=== PATIENT | female | born 1985 | race American Indian/Alaskan Native ===

== ENCOUNTER 2020-11-25 07:28 | Emergency (ER) | payer MEDICAID ==
[2020-11-25 08:02] LABS: Bacteria,Urine 1+ /HPF (Negative); Bilirubin,Urine NEG (Negative); Blood,Urine NEG (Negative); Color,Urine Yellow (Yellow); Mucus,Urine 1+ /HPF
[2020-11-25 08:10] LABS: Amphetamine Screen,Urine Negative; Benzodiazepines Screen,Urine Negative; Methadone Screen,Urine Negative; Opiate Screen,Urine Negative
[2020-11-25 08:12] LABS: Basophils % (Auto) 0.7 % (0.0-1.8); Eosinophils # (Auto) 0.1 K/mm3 (0.0-0.4); Eosinophils % (Auto) 0.8 % (0.0-4.3); Hematocrit 41.8 % (30.3-42.9); Hemoglobin 14.7 gm/dl (10.1-14.3); Lymphocytes # (Auto) 1.2 K/mm3 (1.2-5.4); Lymphocytes % (Auto) 17.7 % (13.4-35.0); Mean Corpuscular HGB Conc 35 % (30-34); Mean Corpuscular Volume 90 fl (79-97); Monocytes # (Auto) 0.4 K/mm3 (0.0-0.8); Monocytes % (Auto) 6.3 % (0.0-7.3); Platelet Count 284 K/mm3 (140-440); Red Blood Count 4.66 M/mm3 (3.65-5.03)
[2020-11-25 08:25] LABS: BUN/Creatinine Ratio 6; Blood Urea Nitrogen 7 mg/dL (7-17); Calcium 9.3 mg/dL (8.4-10.2); Hemolysis Index 2
[2020-11-25 08:41] LABS: Cannabinoid Screen,Urine PRESUMPTIVE POSITIVE; Cocaine Screen,Urine PRESUMPTIVE POSITIVE
--- NOTE | 2020-11-25 10:47 | Consultation ---
History of Present Illness - Reason for Consult Consult date: 11/25/20 Reason for consult: suicidal thoughts - History of Present Psychiatric Illness Per ED note: "Patient is 35-year-old transgender presented to the emergency room with depression and suicidal ideation. Patient stated that he has history of bipolar disorder. Patient stated that he had multiple suicidal attempts before. Patient stated that last year he woke up at [facility] after he hang himself. Patient stated that he does not have a plan at this moment but he feels life is not worth it anymore. Patient stated that he had issues with his and he is going through divorce. Patient admitted using cocaine in the last few days. Patient denied any homicidal ideation. No visual or auditory hallucination." Sunita Eason is a 35y/o transgender male who presents to the ER with suicidal ideation, hopelessness, helplessness and drug use. The patient says "I went to [place] but they told me I needed to come here." He says "I want to just jump off of a bridge or run into traffic. I don't know what to do." He says he has a history of cocaine, crack, and THC use. He says he "has a gun but my girlfriend has it locked up." The patient denies being on any medication and says he was on vistaril in 2019. He says he has a history of depression. PAST PSYCHIATRIC HISTORY: Diagnoses: Depression Suicide attempts or Self-harm behavior: "a lot of times" Prior psychiatric hospitalizations: yes Substance Abuse history: Crack, cocaine, [facility] Previous psychiatric medications tried: Yes Outpatient treatment: No response PAST MEDICAL HISTORY: No significant past medical history Family Psychiatric History: None reported or documented SOCIAL HISTORY Marital Status: Single Living Arrangements: half-way Employment Status: Unemployed on SSI Access to guns/weapons: None reported Education: High school History of Abuse: None reported Legal History: None reported REVIEW OF SYSTEMS Constitutional: Negative for weight loss ENT: Negative for stridor Respiratory: Negative for cough or hemoptysis All other systems reviewed and are negative MENTAL STATUS EXAMINATION General Appearance and Behavior: Age appropriate, good hygiene, not wearing appropriate clothes, good eye contact, cooperative with questioning. Cooperation: Participating but withdrawn and guarded Psychomotor Behavior: Psychomotor agitation Mood: Depressed, hopeless, helpless Affect and affective range: Congruent with stated mood Thought Process: goal directed Thought Content: hopelessness, suicidal thoughts Speech: pressured, loud volume at times Intellectual Functioning: Average Suicidal Ideation: Yes Homicidal Ideation: Denies HI Impulse Control: Impaired Insight and Judgment: Limited insight and judgment Memory: Normal, Attention: Divided attention impaired Orientation: Alert, oriented, Assessment and Plan Major Depressive Disorder Cocaine Dependence Current Visit: Yes Status: Acute Treatment Plan 1013 Risperidone 0.25mg po BID Trazodone 50mg po qhs Medical: per primary Disposition: Recommend acute inpatient treatment Will follow. Thank you for this consult Case staffed with Dr. Rodriguez Medications and Allergies Allergies Allergy/AdvReac Type Severity Reaction Status Date / Time No Known Allergies Allergy Verified 07/29/18 22:14 Home Medications Medication Instructions Recorded Confirmed Last Taken Type Testosterone 0.5 mil units IM 2XW 07/29/18 07/29/18 2 Weeks Ago History ~07/15/18 Mental Status Exam - Vital signs Last Vital Signs Temp 98.9 F 11/25/20 07:34 Pulse 74 11/25/20 07:34 Resp 18 11/25/20 07:34 BP 148/91 11/25/20 07:34 Pulse Ox 99 11/25/20 07:34 Results Result Diagrams: 11/25/20 07:49 11/25/20 07:49 Abnormal lab results 11/25/20 11/25/20 11/25/20 Range/Units 07:49 07:49 07:49 Hgb (10.1-14.3) gm/dl MCHC (30-34) % Seg Neutrophils % (40.0-70.0) % Potassium 3.5 L (3.6-5.0) mmol/L Chloride 107.3 H (98-107) mmol/L Salicylates < 0.3 L (2.8-20.0) mg/dL Acetaminophen 5.0 L (10.0-30.0) ug/mL 11/25/20 Range/Units 07:49 Hgb 14.7 H (10.1-14.3) gm/dl MCHC 35 H (30-34) % Seg Neutrophils % 74.5 H (40.0-70.0) % Potassium (3.6-5.0) mmol/L Chloride (98-107) mmol/L Salicylates (2.8-20.0) mg/dL Acetaminophen (10.0-30.0) ug/mL All other labs normal.
--- NOTE | 2020-11-25 10:57 | Emergency Department Report ---
ED Psych HPI - General Chief Complaint: Psych Stated Complaint: CYNTHIA EVNOEMÍ Time Seen by Provider: 11/25/20 10:20 Source: patient Mode of arrival: Ambulatory - History of Present Illness Initial Comments: Patient is 35-year-old transgender presented to the emergency room with depress ion and suicidal ideation. Patient stated that he has history of bipolar disorder. Patient stated that he had multiple suicidal attempts before. Patient stated that last year he woke up at [facility] after he hang himself. Patient stated that he does not have a plan at this moment but he fee ls life is not worth it anymore. Patient stated that he had issues with his and he is going through divorce. Patient admitted using cocaine in the last few days. Patient denied any homicidal ideation. No visual or auditory hallucination. MD Complaint: suicidal ideation, feels depressed -: days(s) Associated Psychiatric Symptoms: depression, suicidal ideation Quality: constant Context: recent drug abuse Associated Symptoms: denies other symptoms Treatments Prior to Arrival: none If Self Harm: admits thoughts of - Related Data Home Medications Medication Instructions Recorded Confirmed Last Taken Testosterone Cypionate 50 mg IM QWEEK 11/25/20 11/25/20 2 Weeks Ago [Depo-Testosterone] ~11/11/20 Allergies Allergy/AdvReac Type Severity Reaction Status Date / Time No Known Allergies Allergy Verified 07/29/18 22:14 ED Review of Systems ROS: Stated complaint: CYNTHIA EVNOEMÍ Other details as noted in HPI Comment: All other systems reviewed and negative Constitutional: denies: chills, fever Respiratory: denies: cough, shortness of breath, SOB with exertion, SOB at rest, wheezing Cardiovascular: denies: chest pain, palpitations, dyspnea on exertion Gastrointestinal: denies: abdominal pain, nausea, vomiting, diarrhea, constipation, hematemesis, melena, hematochezia Musculoskeletal: denies: back pain Neurological: denies: headache, weakness, numbness, paresthesias, confusion ED Past Medical Hx - Past Medical History Hx Psychiatric Treatment: Yes (ptsd/depression/anxiety/adhd/mood swings) Additional medical history: pt is going to gender reassignment surgery. - Surgical History Additional Surgical History: top surgery - Social History Smoking Status: Current Every Day Smoker Substance Use Type: Cocaine, Marijuana - Medications Home Medications: Home Medications Medication Instructions Recorded Confirmed Last Taken Type Testosterone Cypionate 50 mg IM QWEEK 11/25/20 11/25/20 2 Weeks Ago History [Depo-Testosterone] ~11/11/20 ED Physical Exam - General Limitations: No Limitations General appearance: alert, in no apparent distress - Head Head exam: Present: atraumatic, normocephalic, normal inspection - Eye Eye exam: Present: normal appearance, PERRL - ENT ENT exam: Present: normal exam, normal orophraynx, mucous membranes moist - Neck Neck exam: Present: normal inspection, full ROM. Absent: tenderness, meningismus, lymphadenopathy, thyromegaly - Respiratory Respiratory exam: Present: normal lung sounds bilaterally - Cardiovascular Cardiovascular Exam: Present: regular rate, normal rhythm, normal heart sounds - GI/Abdominal GI/Abdominal exam: Present: soft, normal bowel sounds. Absent: distended, tenderness, guarding, rebound, rigid, organomegaly, mass, bruit, pulsatile mass, hernia - Extremities Exam Extremities exam: Present: normal inspection, full ROM, normal capillary refill. Absent: pedal edema, calf tenderness - Back Exam Back exam: Present: normal inspection, full ROM. Absent: CVA tenderness (R), CVA tenderness (L) - Neurological Exam Neurological exam: Present: alert, oriented X3, CN II-XII intact, normal gait, reflexes normal. Absent: motor sensory deficit - Psychiatric Psychiatric exam: Present: normal mood, depressed, suicidal ideation. Absent: homicidal ideation - Skin Skin exam: Present: warm, intact, normal color ED Course Vital Signs 11/25/20 11/25/20 11/25/20 07:34 13:45 14:18 Temperature 98.9 F Pulse Rate 74 69 Respiratory 18 18 18 Rate Blood Pressure 148/91 Blood Pressure 111/69 [Left] O2 Sat by Pulse 99 98 Oximetry 11/25/20 20:00 Temperature 97.9 F Pulse Rate 71 Respiratory 18 Rate Blood Pressure Blood Pressure 117/79 [Left] O2 Sat by Pulse 99 Oximetry ED Medical Decision Making - Lab Data Result diagrams: 11/25/20 07:49 11/25/20 07:49 Critical care attestation.: If time is entered above; I have spent that time in minutes in the direct care of this critically ill patient, excluding procedure time. ED Disposition Clinical Impression: Suicidal ideation Disposition: [id number]/TX-[id number] PSY HOSP/PSY UNIT Is pt being admited?: No Condition: Stable Referrals: PRIMARY CARE, [Primary Care Provider] - 3-5 Days
[2020-11-25] MEDS: risperiDONE 0.25 MG TAB PO SCH ×2 (12:14→22:10)
[2020-11-25 20:59] VITALS: BP 117/79
[2020-11-25] MEDS ORDERED: traZODone 50 MG TAB PO SCH (22:00)
== END 2020-11-25 22:50 ==
LOC: ED 07:28
DX: R45.851 Suicidal ideations (principal); F17.200 Nicotine dependence, unspecified, uncomplicated; F12.10 Cannabis abuse, uncomplicated; F14.10 Cocaine abuse, uncomplicated; Z79.899 Other long term (current) drug therapy
CPT/HCPCS: 36415; 80048; 80307; 80320; 81001; 85025; G0480

== ENCOUNTER 2020-12-22 11:38 | Emergency (ER) | payer MEDICAID ==
[2020-12-22 12:43] VITALS: BP 131/85
--- NOTE | 2020-12-22 13:41 | Emergency Department Report ---
Blank Doc - Documentation Documentation: 35-year-old female that presents with SI and depression. 1- This initial assessment/diagnostic orders/clinical plan/ treatment(s) is/are subject to change based on pt's health status, clinical progression and re- assessment by fellow clinical providers in the ED. Further treatment and workup at subsequent clinical provers discretion. Patient/guardians urged not to elope from ED as their condition may be serious if not clinically assessed and managed. 2-patient placed on 1013 3-psych protocol orders
[2020-12-22 14:46] LABS: Basophils % (Auto) 0.5 % (0.0-1.8); Eosinophils # (Auto) 0.1 K/mm3 (0.0-0.4); Hematocrit 38.8 % (30.3-42.9); Hemoglobin 13.5 gm/dl (10.1-14.3); Lymphocytes % (Auto) 23.9 % (13.4-35.0); Mean Corpuscular HGB Conc 35 % (30-34); Mean Corpuscular Volume 91 fl (79-97); Monocytes # (Auto) 0.5 K/mm3 (0.0-0.8); Platelet Count 278 K/mm3 (140-440); Red Blood Count 4.26 M/mm3 (3.65-5.03); Red Cell Distribution Width 14.1 % (13.2-15.2)
[2020-12-22 14:55] LABS: BUN/Creatinine Ratio 6; Blood Urea Nitrogen 7 mg/dL (7-17); Calcium 8.8 mg/dL (8.4-10.2); Hemolysis Index 10
[2020-12-22 15:40] LABS: Bacteria,Urine 1+ /HPF (Negative); Bilirubin,Urine NEG (Negative); Blood,Urine NEG (Negative); Color,Urine Yellow (Yellow); Mucus,Urine FEW /HPF; Protein,Urine <15 mg/dL mg/dL (Negative); RBC,Urine < 1.0 /HPF (0.0-6.0); Urobilinogen,Urine < 2.0 mg/dL (<2.0)
== END 2020-12-22 17:33 | disposition left against medical advice (07) ==
LOC: ED 11:38
DX: F32.9 Major depressive disorder, single episode, unspecified (principal); R45.851 Suicidal ideations; Z53.21 Procedure and treatment not carried out due to patient leaving prior to being seen by health care provider
CPT/HCPCS: 36415; 80048; 80320; 81001; 85025; G0480

== ENCOUNTER 2021-07-01 09:47 | Emergency (ER) | payer MEDICAID ==
--- NOTE | 2021-07-01 11:13 | Emergency Department Report ---
ED Psych HPI - General Stated Complaint: MENTAL HEALTH Time Seen by Provider: 07/01/21 11:06 - History of Present Illness Initial Comments: Patient presents with suicidal thoughts and homicidal thoughts. He states that he has been feeling suicidal for the last couple of days. He does not know why he is having these thoughts. He is not really been able to relate any inciting or triggering event. He is scared that he is going to act on this. He has been suicidal before. He has had thoughts before. He states that normally when he is at this degree, he knows that intervention is necessary. Patient has not done anything as of yet to harm himself. He came here for evaluation. He is not hearing voices that are telling him to harm himself. He is not homicidal at this time, but states that he could be homicidal and feels as though he could h urt someone. He did not want to act rationally and came here. He has pronoun of choice is "he." - Related Data Home Medications Medication Instructions Recorded Confirmed Last Taken Testosterone Cypionate 50 mg IM QWEEK 11/25/20 11/25/20 2 Weeks Ago [Depo-Testosterone] ~11/11/20 Allergies Allergy/AdvReac Type Severity Reaction Status Date / Time No Known Allergies Allergy Verified 12/22/20 12:36 ED Review of Systems ROS: Stated complaint: MENTAL HEALTH Other details as noted in HPI Comment: All other systems reviewed and negative Constitutional: denies: fever Eyes: denies: vision change ENT: denies: throat pain Respiratory: denies: cough Cardiovascular: denies: chest pain Endocrine: denies: unexplained weight loss Gastrointestinal: denies: abdominal pain Genitourinary: denies: dysuria Musculoskeletal: denies: back pain Skin: denies: rash Neurological: denies: headache Psychiatric: as per HPI Hematological/Lymphatic: denies: easy bruising ED Past Medical Hx - Past Medical History Hx Psychiatric Treatment: Yes (ptsd/depression/anxiety/adhd/mood swings) Additional medical history: pt is going to gender reassignment surgery. - Surgical History Additional Surgical History: top surgery - Social History Smoking Status: Never Smoker Substance Use Type: Cocaine - Medications Home Medications: Home Medications Medication Instructions Recorded Confirmed Last Taken Type Testosterone Cypionate 50 mg IM QWEEK 02/02/21 02/02/21 2 Weeks Ago History [Depo-Testosterone] ~11/11/20 ED Physical Exam - General Limitations: No Limitations General appearance: alert, in no apparent distress, anxious - Head Head exam: Present: atraumatic, normocephalic - Eye Eye exam: Present: normal appearance, PERRL, EOMI. Absent: scleral icterus - ENT ENT exam: Present: normal exam, normal orophraynx - Neck Neck exam: Present: normal inspection, full ROM. Absent: meningismus - Respiratory Respiratory exam: Present: normal lung sounds bilaterally. Absent: respiratory distress - Cardiovascular Cardiovascular Exam: Present: regular rate, normal rhythm - GI/Abdominal GI/Abdominal exam: Present: soft. Absent: tenderness - Extremities Exam Extremities exam: Present: normal capillary refill - Back Exam Back exam: Absent: CVA tenderness (R), CVA tenderness (L) - Neurological Exam Neurological exam: Present: alert, oriented X3, normal gait - Psychiatric Psychiatric exam: Present: anxious, suicidal ideation - Skin Skin exam: Present: warm, dry ED Course Vital Signs 07/01/21 07/01/21 11:08 11:38 Temperature 98.6 F 98.3 F Pulse Rate 84 63 Respiratory 17 20 Rate Blood Pressure 133/87 122/75 [Left] O2 Sat by Pulse 100 99 Oximetry - Reevaluation(s) Reevaluation #1: 07/01/21 11:12 Patient was seen as above. He is actively suicidal without a plan. 1013 was placed. Psychiatric evaluation has been requested. Reevaluation #2: 07/01/21 12:17 Labs are still pending. Reevaluation #3: 07/01/21 14:03 Labs are still pending. Reevaluation #4: 07/01/21 17:22 Labs have not been reviewed. Psychiatric evaluation is complete. Placement is pending. Patient is medically cleared. 07/01/21 17:23 ED Medical Decision Making - Lab Data Result diagrams: 07/01/21 Unknown 07/01/21 11:12 - Medical Decision Making Patient presented secondary to depression and thoughts of suicide. There was some concern for self harm. He also thought that he could become upset enough to harm other people. He had been medically cleared. Patient was seen by psychiatric services. It was felt that admission would be appropriate. They are currently awaiting disposition and placement. Patient is not delusional. There is no evidence of acute psychosis. There is no metabolic or infectious derangement. Critical Care Time: No Critical care attestation.: If time is entered above; I have spent that time in minutes in the direct care of this critically ill patient, excluding procedure time. ED Disposition Clinical Impression: Suicidal ideation Disposition: 30 STILL A PATIENT Is pt being admited?: No Does the pt Need Aspirin: No Condition: Stable
[2021-07-01 12:53] LABS: BUN/Creatinine Ratio 8; Blood Urea Nitrogen 7 mg/dL (7-17); Calcium 9.3 mg/dL (8.4-10.2); Hemolysis Index 4
[2021-07-01 14:39] LABS: Bacteria,Urine 1+ /HPF (Negative); Bilirubin,Urine NEG (Negative); Blood,Urine MOD (Negative); Color,Urine Yellow (Yellow); Mucus,Urine 3+ /HPF
[2021-07-01 14:52] LABS: Amphetamine Screen,Urine PRESUMPTIVE NEGATIVE; Benzodiazepines Screen,Urine PRESUMPTIVE NEGATIVE; Cannabinoid Screen,Urine PRESUMPTIVE POSITIVE; Cocaine Screen,Urine PRESUMPTIVE POSITIVE; Methadone Screen,Urine PRESUMPTIVE NEGATIVE; Opiate Screen,Urine PRESUMPTIVE NEGATIVE
[2021-07-01 16:43] LABS: Hematocrit 38.1 % (30.3-42.9); Mean Corpuscular HGB Conc 34 % (30-34); Mean Corpuscular Volume 94 fl (79-97); Platelet Count 284 K/mm3 (140-440); Red Blood Count 4.08 M/mm3 (3.65-5.03); Red Cell Distribution Width 13.9 % (13.2-15.2)
[2021-07-01] MEDS ORDERED: traMADol 50 MG TAB PO ONE (19:46)
--- NOTE | 2021-07-02 09:31 | Consultation ---
History of Present Illness - Reason for Consult Consult date: 07/02/21 Reason for consult: SI/HI - History of Present Psychiatric Illness Per ED Note: Patient presents with suicidal thoughts and homicidal thoughts. He states that he has been feeling suicidal for the last couple of days. He does not know why he is having these thoughts. He is not really been able to relate any inciting or triggering event. He is scared that he is going to act on this. He has been suicidal before. He has had thoughts before. He states that normally when he is at this degree, he knows that intervention is necessary. Patient has not done anything as of yet to harm himself. He came here for evaluation. He is not hearing voices that are telling him to harm himself. He is not homicidal at this time, but states that he could be homicidal and feels as though he could hurt someone. He did not want to act rationally and came here. Sunita Eason is a 36 year old female with history of Schizophrenia, Bip olar, Depression, ADHD, PTSD, Anxiety who presents to the ED with suicidal and homicidal thoughts. In my interview with the patient, she reports being depressed stating, " I keep seeing vision of myself running into traffic or jumping into a bridge." She reports stressors such as " Life, not being able to get over a lot of stuff, how people treat me and I don't know my purpose."The patient became tearful. He admits being suicidal but denies having homicidal ideation and denies hallucinations. PAST PSYCHIATRIC HISTORY: Diagnoses:Schizophrenia, Bipolar, Depression, ADHD, PTSD, Anxiety Suicide attempts or Self-harm behavior: Multiple Prior psychiatric hospitalizations:Yes Substance Abuse history: Cocaine, Marijuana Previous psychiatric medications tried: Zoloft, Risperidone, Trazodone, Cogentin, Depakote, Seroquel, Abilify Outpatient treatment:Denies PAST MEDICAL HISTORY: None reported or document Family Psychiatric History: None reported or documented SOCIAL HISTORY Marital Status: Living Arrangements: Lives with Employment Status:SSI Access to guns/weapons: Denies Education:some Ged History of Abuse:Yes Legal History:unknown REVIEW OF SYSTEMS Constitutional: Negative for weight loss ENT: Negative for stridor Respiratory: Negative for cough or hemoptysis All other systems reviewed and are negative MENTAL STATUS EXAMINATION General Appearance and Behavior: Age appropriate, good hygiene, wearing appropriate clothes. Cooperation: Cooperative Psychomotor Behavior: Psychomotor normal Mood:Depressed Affect and affective range: Congruent with stated mood Thought Process: Obsessions Thought Content: Suicidal Speech: Normal volume, Regular rate and rhythm, Suicidal Ideation: Yes Homicidal Ideation:Denies Hallucinations: Denies Delusions:Denies Impulse Control: Unimpaired Insight and Judgment: Limited, fair judgment Memory: Normal Attention:Distractible Orientation: alert and oriented Assessment and Plan (1) Bipolar disorder, current episode depressed, severe- F31.4 Current Visit: Yes Status: Acute Start Abilify 10mg po daily Start Vistaril 50mg po every 6 hours PRN Start Trazodone 50mg po QHS The patient to comply with previously prescribed medications Risks, benefits and alternatives of medications discussed with the patient, questions answered and consent obtained from patient. PSYCHOTHERAPY: Supportive psychotherapy provided MEDICAL: Per primary team DELIRIUM PRECAUTIONS: Please re-orient patient frequently, keep lights on during the day, and minimize benzodiazepines and opiates as these medications could worsen patient's confusion. [employer] SUPERINTENDENT: Defer to primary DISPOSITION: Recommend acute inpatient psychiatric hospitalization at this time. FOLLOW-UP: Will follow. Case staffed with Dr. Rodriguez Please contact with any questions and/or concerns. Thank you for the consult. Medications and Allergies Allergies Allergy/AdvReac Type Severity Reaction Status Date / Time No Known Allergies Allergy Verified 12/22/20 12:36 Home Medications Medication Instructions Recorded Confirmed Last Taken Type Testosterone Cypionate 50 mg IM QWEEK 11/25/20 11/25/20 2 Weeks Ago History [Depo-Testosterone] ~11/11/20 Mental Status Exam - Vital signs Last Vital Signs Temp 99.0 F 07/02/21 08:08 Pulse 63 07/02/21 08:08 Resp 18 07/02/21 08:28 BP 125/77 07/02/21 08:08 Pulse Ox 98 07/02/21 08:28 Results Result Diagrams: 07/01/21 Unknown 07/01/21 11:12 Abnormal lab results 07/01/21 Range/Units 11:12 Chloride 107.4 H (98-107) mmol/L All other labs normal.
--- NOTE | 2021-07-02 10:32 | Event Note ---
Date: 07/02/21 Patient is 36 years old female with history of schizophrenia admitted to the ER yesterday for evaluation of suicidal ideation. Patient stated that she went to run into traffic. Vital signs stable Labs reviewed and is unremarkable. Waiting for inpatient psychiatric admission.
[2021-07-02] MEDS ORDERED: hydrOXYzine PAMOATE 25 MG CAP PO ONE (11:00)
[2021-07-02] MEDS ORDERED: ARIPiprazole 10 MG TAB PO SCH (11:00)
[2021-07-02] MEDS ORDERED: traZODone 50 MG TAB PO SCH (22:00)
[2021-07-03 09:04] VITALS: BP 115/72
== END 2021-07-03 09:03 | disposition still patient (30) ==
LOC: EEVIPCON 09:47 → ED 09:47
DX: R45.851 Suicidal ideations (principal); Z20.822 Contact with and (suspected) exposure to COVID-19
CPT/HCPCS: 36415; 80048; 80307; 81001; 84443; 85027; 99284; Q0177; U0003; 80320; G0480

== ENCOUNTER 2021-07-31 12:55 | Emergency (ER) | payer MEDICAID ==
[2021-07-31 15:24] LABS: Alanine Aminotransferase 10 units/L (7-56); Albumin 3.6 g/dL (3.9-5); BUN/Creatinine Ratio 9; Blood Urea Nitrogen 8 mg/dL (7-17); Calcium 8.3 mg/dL (8.4-10.2); Hemolysis Index 5
[2021-07-31 15:34] LABS: Basophils % (Auto) 0.5 % (0.0-1.8); Eosinophils # (Auto) 0.2 K/mm3 (0.0-0.4); Eosinophils % (Auto) 2.7 % (0.0-4.3); Hematocrit 34.7 % (30.3-42.9); Lymphocytes # (Auto) 1.5 K/mm3 (1.2-5.4); Lymphocytes % (Auto) 20.8 % (13.4-35.0); Mean Corpuscular HGB Conc 35 % (30-34); Mean Corpuscular Volume 92 fl (79-97); Monocytes # (Auto) 0.7 K/mm3 (0.0-0.8); Monocytes % (Auto) 10.1 % (0.0-7.3); Platelet Count 287 K/mm3 (140-440); Red Blood Count 3.78 M/mm3 (3.65-5.03); Red Cell Distribution Width 13.9 % (13.2-15.2)
--- NOTE | 2021-07-31 17:31 | Emergency Department Report ---
HPI - General Chief Complaint: Psych Time Seen by Provider: 07/31/21 14:32 - HPI HPI: 36-year-old biologically female who identifies as a male with history of PTSD, bipolar disorder, and schizophrenia presents with suicidal ideation. The patient states that he is having trouble with his and is having thoughts of killing himself. He has a plan to jump into traffic. When asked about homicidal ideation he says "I had those thoughts". When asked who he has had thoughts of hurting he states, "those that try to hurt me." He denies auditory or visual hallucinations. He denies any physical symptoms or complaints whatsoever including headache, vision change, fever, neck pain, chest pain, back pain, shortness of breath, cough, abdominal pain, nausea/vomiting, dysuria, focal weakness, sensory changes, or any other complaints. He says his last menstrual period was at the end of June. ED Past Medical Hx - Past Medical History Previous Medical History?: Yes Hx Psychiatric Treatment: Yes (ptsd/depression/anxiety/adhd/mood swings) Additional medical history: pt is going to gender reassignment surgery. - Surgical History Past Surgical History?: Yes Additional Surgical History: top surgery - Social History Smoking Status: Unknown if ever smoked - Medications Home Medications: Home Medications Medication Instructions Recorded Confirmed Last Taken Type Testosterone Cypionate 50 mg IM QWEEK 11/25/20 08/01/21 1 Week Ago History [Depo-Testosterone] ~07/25/21 50 mg ARIPiprazole [Abilify] 10 mg PO DAILY #30 tab 08/02/21 Unknown Rx Sertraline [Zoloft] 25 mg PO QDAY #30 tab 08/02/21 Unknown Rx hydrOXYzine PAMOATE [Vistaril] 25 mg PO BID PRN #60 capsule 08/02/21 Unknown Rx traZODone [Desyrel] 50 mg PO QHS #30 tab 08/02/21 Unknown Rx ED Review of Systems ROS: Stated complaint: SUICIDAL/DEPRESSION Other details as noted in HPI Comment: All other systems reviewed and negative Constitutional: denies: chills, fever Eyes: denies: eye pain, vision change ENT: denies: throat pain, congestion Respiratory: denies: cough, shortness of breath Cardiovascular: denies: chest pain, palpitations Gastrointestinal: denies: abdominal pain, nausea, vomiting Genitourinary: denies: dysuria, frequency Musculoskeletal: denies: back pain, joint swelling Skin: denies: rash, lesions Neurological: denies: headache, weakness, numbness Psychiatric: depression, homicidal thoughts, suicidal thoughts. denies: auditory hallucinations, visual hallucinations Physical Exam - Physical Exam Vital Signs: Vital Signs 07/31/21 07/31/21 13:11 16:30 Temperature 98.5 F 98.6 F Pulse Rate 83 83 Respiratory 16 16 Rate Blood Pressure 123/68 123/67 [Left] O2 Sat by Pulse 97 100 Oximetry Physical Exam: GENERAL: Well developed and well nourished. No acute distress HEAD: Normocephalic. No obvious signs of trauma. ENT: Moist mucous membranes. EYES: Extraocular movements are intact. Pupils are equal round and reactive to light bilaterally NECK: Supple. Full ROM is intact. Trachea is midline. LUNGS: Nonlabored breathing. Equal chest rise bilaterally. Clear to auscultation bilaterally. CARDIOVASCULAR: Regular rate and rhythm. No murmurs or rubs. VASCULAR: Cap refill < 2 seconds ABDOMEN: Abdomen is soft and nondistended. There is no significant tenderness, guarding or rebound. SKIN: Skin is warm and dry NEURO: Patient is awake, alert, and oriented. solar process engineer II-XII grossly intact. No focal deficits. Normal motor and sensory exam throughout. Normal speech. MUSCULOSKELETAL: No obvious deformities. No significant tenderness. Normal ROM throughout. ED Course Vital Signs 07/31/21 07/31/21 13:11 16:30 Temperature 98.5 F 98.6 F Pulse Rate 83 83 Respiratory 16 16 Rate Blood Pressure 123/68 123/67 [Left] O2 Sat by Pulse 97 100 Oximetry ED Medical Decision Making - Lab Data Result diagrams: 07/31/21 17:16 07/31/21 14:45 Lab Results 07/31/21 07/31/21 07/31/21 Range/Units 14:45 14:45 14:45 WBC 7.1 (4.5-11.0) K/mm3 RBC 3.78 (3.65-5.03) M/mm3 Hgb 12.0 (10.1-14.3) gm/dl Hct 34.7 (30.3-42.9) % MCV 92 (79-97) fl MCH 32 (28-32) pg MCHC 35 H (30-34) % RDW 13.9 (13.2-15.2) % Plt Count 287 (140-440) K/mm3 Lymph % (Auto) 20.8 (13.4-35.0) % [place] % (Auto) 10.1 H (0.0-7.3) % Eos % (Auto) 2.7 (0.0-4.3) % Baso % (Auto) 0.5 (0.0-1.8) % Lymph # (Auto) 1.5 (1.2-5.4) K/mm3 [place] # (Auto) 0.7 (0.0-0.8) K/mm3 Eos # (Auto) 0.2 (0.0-0.4) K/mm3 Baso # (Auto) 0.0 (0.0-0.1) K/mm3 Seg Neutrophils % 65.9 (40.0-70.0) % Seg Neutrophils # 4.7 (1.8-7.7) K/mm3 Sodium 139 (137-145) mmol/L Potassium 3.7 (3.6-5.0) mmol/L Chloride 105.9 (98-107) mmol/L Carbon Dioxide 23 (22-30) mmol/L Anion Gap 14 mmol/L BUN 8 (7-17) mg/dL Creatinine 0.9 (0.6-1.2) mg/dL Estimated GFR > 60 ml/min BUN/Creatinine Ratio 9 % Glucose 91 (65-100) mg/dL Calcium 8.3 L (8.4-10.2) mg/dL Total Bilirubin 0.80 (0.1-1.2) mg/dL AST 13 (5-40) units/L ALT 10 (7-56) units/L Alkaline Phosphatase 62 (35-129) units/L Total Protein 6.5 (6.3-8.2) g/dL Albumin 3.6 L (3.9-5) g/dL Albumin/Globulin Ratio 1.2 % HCG, Qual (Negative) Urine Color (Yellow) Urine Turbidity (Clear) Urine pH (5.0-7.0) Ur Specific [place] (1.003-1.030) Urine Protein (Negative) mg/dL Urine Glucose (UA) (Negative) mg/dL Urine Ketones (Negative) mg/dL Urine Blood (Negative) Urine Nitrite (Negative) Urine Bilirubin (Negative) Urine Urobilinogen (<2.0) mg/dL Ur Leukocyte Esterase (Negative) Urine WBC (Auto) (0.0-6.0) /HPF Urine RBC (Auto) (0.0-6.0) /HPF U Epithel Cells (Auto) (0-13.0) /HPF Urine Bacteria (Auto) (Negative) /HPF Urine Mucus /HPF Salicylates < 0.3 L (2.8-20.0) mg/dL Urine Opiates Screen Urine Methadone Screen Acetaminophen (10.0-30.0) ug/mL Ur Barbiturates Screen Ur Phencyclidine Scrn Ur Amphetamines Screen U Benzodiazepines Scrn Urine Cocaine Screen U Marijuana (THC) Screen Drugs of Abuse Note Plasma/Serum Alcohol (0-0.07) % Coronavirus (PCR) (Negative) 07/31/21 07/31/21 07/31/21 Range/Units 14:45 14:45 14:45 WBC (4.5-11.0) K/mm3 RBC (3.65-5.03) M/mm3 Hgb (10.1-14.3) gm/dl Hct (30.3-42.9) % MCV (79-97) fl MCH (28-32) pg MCHC (30-34) % RDW (13.2-15.2) % Plt Count (140-440) K/mm3 Lymph % (Auto) (13.4-35.0) % [place] % (Auto) (0.0-7.3) % Eos % (Auto) (0.0-4.3) % Baso % (Auto) (0.0-1.8) % Lymph # (Auto) (1.2-5.4) K/mm3 [place] # (Auto) (0.0-0.8) K/mm3 Eos # (Auto) (0.0-0.4) K/mm3 Baso # (Auto) (0.0-0.1) K/mm3 Seg Neutrophils % (40.0-70.0) % Seg Neutrophils # (1.8-7.7) K/mm3 Sodium (137-145) mmol/L Potassium (3.6-5.0) mmol/L Chloride (98-107) mmol/L Carbon Dioxide (22-30) mmol/L Anion Gap mmol/L BUN (7-17) mg/dL Creatinine (0.6-1.2) mg/dL Estimated GFR ml/min BUN/Creatinine Ratio % Glucose (65-100) mg/dL Calcium (8.4-10.2) mg/dL Total Bilirubin (0.1-1.2) mg/dL AST (5-40) units/L ALT (7-56) units/L Alkaline Phosphatase (35-129) units/L Total Protein (6.3-8.2) g/dL Albumin (3.9-5) g/dL Albumin/Globulin Ratio % HCG, Qual Negative (Negative) Urine Color (Yellow) Urine Turbidity (Clear) Urine pH (5.0-7.0) Ur Specific [place] (1.003-1.030) Urine Protein (Negative) mg/dL Urine Glucose (UA) (Negative) mg/dL Urine Ketones (Negative) mg/dL Urine Blood (Negative) Urine Nitrite (Negative) Urine Bilirubin (Negative) Urine Urobilinogen (<2.0) mg/dL Ur Leukocyte Esterase (Negative) Urine WBC (Auto) (0.0-6.0) /HPF Urine RBC (Auto) (0.0-6.0) /HPF U Epithel Cells (Auto) (0-13.0) /HPF Urine Bacteria (Auto) (Negative) /HPF Urine Mucus /HPF Salicylates (2.8-20.0) mg/dL Urine Opiates Screen Urine Methadone Screen Acetaminophen 5.0 L (10.0-30.0) ug/mL Ur Barbiturates Screen Ur Phencyclidine Scrn Ur Amphetamines Screen U Benzodiazepines Scrn Urine Cocaine Screen U Marijuana (THC) Screen Drugs of Abuse Note Plasma/Serum Alcohol < 0.01 (0-0.07) % Coronavirus (PCR) (Negative) 07/31/21 07/31/21 07/31/21 Range/Units 17:16 Unknown Unknown WBC 7.2 (4.5-11.0) K/mm3 RBC 3.93 (3.65-5.03) M/mm3 Hgb 12.4 (10.1-14.3) gm/dl Hct 36.3 (30.3-42.9) % MCV 92 (79-97) fl MCH 32 (28-32) pg MCHC 34 (30-34) % RDW 14.0 (13.2-15.2) % Plt Count 314 (140-440) K/mm3 Lymph % (Auto) 23.9 (13.4-35.0) % [place] % (Auto) 8.6 H (0.0-7.3) % Eos % (Auto) 2.7 (0.0-4.3) % Baso % (Auto) 0.7 (0.0-1.8) % Lymph # (Auto) 1.7 (1.2-5.4) K/mm3 [place] # (Auto) 0.6 (0.0-0.8) K/mm3 Eos # (Auto) 0.2 (0.0-0.4) K/mm3 Baso # (Auto) 0.1 (0.0-0.1) K/mm3 Seg Neutrophils % 64.1 (40.0-70.0) % Seg Neutrophils # 4.6 (1.8-7.7) K/mm3 Sodium (137-145) mmol/L Potassium (3.6-5.0) mmol/L Chloride (98-107) mmol/L Carbon Dioxide (22-30) mmol/L Anion Gap mmol/L BUN (7-17) mg/dL Creatinine (0.6-1.2) mg/dL Estimated GFR ml/min BUN/Creatinine Ratio % Glucose (65-100) mg/dL Calcium (8.4-10.2) mg/dL Total Bilirubin (0.1-1.2) mg/dL AST (5-40) units/L ALT (7-56) units/L Alkaline Phosphatase (35-129) units/L Total Protein (6.3-8.2) g/dL Albumin (3.9-5) g/dL Albumin/Globulin Ratio % HCG, Qual (Negative) Urine Color Yellow (Yellow) Urine Turbidity Slightly-cloudy (Clear) Urine pH 5.0 (5.0-7.0) Ur Specific [place] 1.024 (1.003-1.030) Urine Protein <15 mg/dl (Negative) mg/dL Urine Glucose (UA) Neg (Negative) mg/dL Urine Ketones Neg (Negative) mg/dL Urine Blood Neg (Negative) Urine Nitrite Neg (Negative) Urine Bilirubin Neg (Negative) Urine Urobilinogen 4.0 (<2.0) mg/dL Ur Leukocyte Esterase Neg (Negative) Urine WBC (Auto) 1.0 (0.0-6.0) /HPF Urine RBC (Auto) 4.0 (0.0-6.0) /HPF U Epithel Cells (Auto) 7.0 (0-13.0) /HPF Urine Bacteria (Auto) 1+ (Negative) /HPF Urine Mucus 3+ /HPF Salicylates (2.8-20.0) mg/dL Urine Opiates Screen Negative Urine Methadone Screen Negative Acetaminophen (10.0-30.0) ug/mL Ur Barbiturates Screen Negative Ur Phencyclidine Scrn Negative Ur Amphetamines Screen Negative U Benzodiazepines Scrn Negative Urine Cocaine Screen Positive U Marijuana (THC) Screen Positive Drugs of Abuse Note Disclamer Plasma/Serum Alcohol (0-0.07) % Coronavirus (PCR) (Negative) 08/01/21 Range/Units 09:09 WBC (4.5-11.0) K/mm3 RBC (3.65-5.03) M/mm3 Hgb (10.1-14.3) gm/dl Hct (30.3-42.9) % MCV (79-97) fl MCH (28-32) pg MCHC (30-34) % RDW (13.2-15.2) % Plt Count (140-440) K/mm3 Lymph % (Auto) (13.4-35.0) % [place] % (Auto) (0.0-7.3) % Eos % (Auto) (0.0-4.3) % Baso % (Auto) (0.0-1.8) % Lymph # (Auto) (1.2-5.4) K/mm3 [place] # (Auto) (0.0-0.8) K/mm3 Eos # (Auto) (0.0-0.4) K/mm3 Baso # (Auto) (0.0-0.1) K/mm3 Seg Neutrophils % (40.0-70.0) % Seg Neutrophils # (1.8-7.7) K/mm3 Sodium (137-145) mmol/L Potassium (3.6-5.0) mmol/L Chloride (98-107) mmol/L Carbon Dioxide (22-30) mmol/L Anion Gap mmol/L BUN (7-17) mg/dL Creatinine (0.6-1.2) mg/dL Estimated GFR ml/min BUN/Creatinine Ratio % Glucose (65-100) mg/dL Calcium (8.4-10.2) mg/dL Total Bilirubin (0.1-1.2) mg/dL AST (5-40) units/L ALT (7-56) units/L Alkaline Phosphatase (35-129) units/L Total Protein (6.3-8.2) g/dL Albumin (3.9-5) g/dL Albumin/Globulin Ratio % HCG, Qual (Negative) Urine Color (Yellow) Urine Turbidity (Clear) Urine pH (5.0-7.0) Ur Specific [place] (1.003-1.030) Urine Protein (Negative) mg/dL Urine Glucose (UA) (Negative) mg/dL Urine Ketones (Negative) mg/dL Urine Blood (Negative) Urine Nitrite (Negative) Urine Bilirubin (Negative) Urine Urobilinogen (<2.0) mg/dL Ur Leukocyte Esterase (Negative) Urine WBC (Auto) (0.0-6.0) /HPF Urine RBC (Auto) (0.0-6.0) /HPF U Epithel Cells (Auto) (0-13.0) /HPF Urine Bacteria (Auto) (Negative) /HPF Urine Mucus /HPF Salicylates (2.8-20.0) mg/dL Urine Opiates Screen Urine Methadone Screen Acetaminophen (10.0-30.0) ug/mL Ur Barbiturates Screen Ur Phencyclidine Scrn Ur Amphetamines Screen U Benzodiazepines Scrn Urine Cocaine Screen U Marijuana (THC) Screen Drugs of Abuse Note Plasma/Serum Alcohol (0-0.07) % Coronavirus (PCR) Negative (Negative) - Medical Decision Making 36-year-old anatomically female who identifies as male presents with suicidal ideation with plan to jump into traffic. Also expresses some homicidal ideation but it is unclear who it is directed at. Denies auditory visual hallucinations. Denies any physical complaints. On initial assessment, the pat ient is afebrile and with normal vital signs. Physical examination is grossly within normal limits. 1013 order has been signed and initiated and medical clearance labs have been sent. Labs have resulted and reveal no significant leukocytosis or anemia. Creatinine is within normal range and there are no significant electrolyte abnormalities. test is negative. Urinalysis and UDS are still pending. Nonetheless, the patient is medically cleared for psychiatric evaluation and placement After several days, the patient was cleared for discharge by the mental health/psychiatry team and was given outpatient resources for follow up Critical care attestation.: If time is entered above; I have spent that time in minutes in the direct care of this critically ill patient, excluding procedure time. ED Disposition Clinical Impression: Bipolar disorder, Suicidal ideations Disposition: HOME / SELF CARE / HOMELESS Is pt being admited?: No Condition: Stable Instructions: Managing Bipolar Disorder Additional Instructions: OUTPATIENT MENTAL HEALTH RESOURCES [facility], [facility] Nessa Fishman MD: [address] [place] [address] [place] [address] [place] [facility]: [employer] [facility] [address] [place] [address] [place] [address] [phone] [facility]: [facility]: [address] [facility] [place] [address] [facility] [address] [place] [facility]: Hector Avila MD: [address] [facility] [address] [facility] [address] [facility]: [address] [place], [place] [id number] [phone] [address] CRISIS AND ACCESS LINE: Prescriptions: traZODone [Desyrel] 50 mg PO QHS #30 tab ARIPiprazole [Abilify] 10 mg PO DAILY #30 tab hydrOXYzine PAMOATE [Vistaril] 25 mg PO BID PRN #60 capsule PRN Reason: Anxiety Sertraline [Zoloft] 25 mg PO QDAY #30 tab Referrals: PRIMARY CARE, [Primary Care Provider] - 3-5 Days
[2021-07-31 17:38] LABS: Basophils # (Auto) 0.1 K/mm3 (0.0-0.1); Basophils % (Auto) 0.7 % (0.0-1.8); Eosinophils # (Auto) 0.2 K/mm3 (0.0-0.4); Eosinophils % (Auto) 2.7 % (0.0-4.3); Hematocrit 36.3 % (30.3-42.9); Hemoglobin 12.4 gm/dl (10.1-14.3); Lymphocytes # (Auto) 1.7 K/mm3 (1.2-5.4); Lymphocytes % (Auto) 23.9 % (13.4-35.0); Mean Corpuscular HGB Conc 34 % (30-34); Mean Corpuscular Volume 92 fl (79-97); Monocytes # (Auto) 0.6 K/mm3 (0.0-0.8); Monocytes % (Auto) 8.6 % (0.0-7.3); Platelet Count 314 K/mm3 (140-440); Red Blood Count 3.93 M/mm3 (3.65-5.03)
[2021-07-31 18:14] LABS: Bacteria,Urine 1+ /HPF (Negative); Bilirubin,Urine NEG (Negative); Blood,Urine NEG (Negative); Color,Urine Yellow (Yellow); Mucus,Urine 3+ /HPF; Protein,Urine <15 mg/dL mg/dL (Negative)
[2021-07-31 18:16] LABS: Amphetamine Screen,Urine Negative; Benzodiazepines Screen,Urine Negative; Methadone Screen,Urine Negative; Opiate Screen,Urine Negative
[2021-07-31 18:31] LABS: Cannabinoid Screen,Urine Positive; Cocaine Screen,Urine Positive
--- NOTE | 2021-08-01 10:53 | Event Note ---
Date: 08/01/21 S: No major events reported overnight O: Vital Signs - 8 hr 08/01/21 09:09 Temperature 98.2 F Pulse Rate 79 Respiratory 18 Rate Blood Pressure 130/80 [Left] O2 Sat by Pulse 100 Oximetry A: Suicidal ideation P: 1013/awaiting psych placement after Covid results
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
[2021-08-01] MEDS: hydrOXYzine PAMOATE 25 MG CAP PO SCH ×2 (11:31→23:45)
[2021-08-01] MEDS: ARIPiprazole 10 MG TAB PO SCH (11:31)
[2021-08-01] MEDS: SERTRALINE 25 MG TAB PO SCH (11:32)
[2021-08-01] MEDS ORDERED: traZODone 50 MG TAB PO SCH (22:00)
[2021-08-02] MEDS: ARIPiprazole 10 MG TAB PO SCH (10:20)
[2021-08-02] MEDS: SERTRALINE 25 MG TAB PO SCH (10:20)
[2021-08-02] MEDS: hydrOXYzine PAMOATE 25 MG CAP PO SCH (10:20)
--- NOTE | 2021-08-02 10:59 | Progress Note ---
Subjective - Reason for Consult Consult date: 08/02/21 Reason for consult: SI - Chief Complaint Chief complaint: The patient was seen today. She says she is not doing well. Her symptoms is based on the fact that she can't go home to her . The sitter says the patient is calm and denies complaints until she talks to me. She denies hallucinations but states she has bad dreams. She asks me to call her and says "she is not going to let me come home." When asking the patient was she suicidal, she replies "can you call my first." She endorses suicidal thoughts on and off and states because her is upset with her. REVIEW OF SYSTEMS Constitutional: Negative for weight loss ENT: Negative for stridor Respiratory: Negative for cough or hemoptysis All other systems reviewed and are negative MENTAL STATUS EXAMINATION General Appearance and Behavior: Age appropriate, good hygiene, wearing appropriate clothes. Cooperation: Cooperative Psychomotor Behavior: Psychomotor normal Mood:Depressed Affect and affective range: Congruent with stated mood Thought Process: goal directed Thought Content:none Speech: Normal volume, Regular rate and rhythm, Suicidal Ideation: Denies Homicidal Ideation: Denies Hallucinations: Denies Delusions:Denies Impulse Control: Unimpaired Insight and Judgment: limited Memory: Normal Attention: attentive Orientation: alert and oriented Assessment (1) Bipolar disorder, current episode depressed, severe- F31.4 Current Visit: Yes Status: Acute Treatment Plan d/c 1013 Abilify 10mg po daily Vistaril 25mg po BID Trazodone 50mg po QHS Zoloft 25mg po daily The patient to comply with previously prescribed medications Risks, benefits and alternatives of medications discussed with the patient, questions answered and consent obtained from patient. PSYCHOTHERAPY: Supportive psychotherapy provided MEDICAL: Per primary team DELIRIUM PRECAUTIONS: Please re-orient patient frequently, keep lights on during the day, and minimize benzodiazepines and opiates as these medications could worsen patient's confusion. INTERPRETER DEAF: Defer to primary DISPOSITION: Do not recommend acute inpatient psychiatric hospitalization at this time. FOLLOW-UP: Will sign off. Thanks Case staffed with Dr. Rodriguez Mental Status Exam - Vital signs Last Vital Signs Temp 98.2 F 08/01/21 09:09 Pulse 79 08/01/21 09:09 Resp 18 08/01/21 09:09 BP 130/80 08/01/21 09:09 Pulse Ox 98 08/02/21 08:18
[2021-08-02 11:49] VITALS: BP 138/89
--- NOTE | 2021-08-02 14:06 | Event Note ---
Date: 08/02/21 Patient has been seen, evaluated, and cleared by psychiatry team. Spoke with patient and he denies any suicidal ideations. Patient states he spoke with his and she has agreed to come and pick him up. Patient is asking for his discharge papers.
== END 2021-08-02 15:12 | disposition home or self-care (01) ==
LOC: ED 12:55
DX: R45.851 Suicidal ideations (principal); F31.9 Bipolar disorder, unspecified; Z20.822 Contact with and (suspected) exposure to COVID-19; F43.10 Post-traumatic stress disorder, unspecified
CPT/HCPCS: 36415; 80053; 80307; 81001; 84703; 85025; 99284; Q0177; U0003; 80320; G0480

== ENCOUNTER 2021-11-18 20:40 | Emergency (ER) | payer MEDICAID ==
[2021-11-18 20:53] VITALS: BP 118/72
[2021-11-18 21:39] LABS: Basophils % (Auto) 0.5 % (0.0-1.8); Eosinophils # (Auto) 0.1 K/mm3 (0.0-0.4); Eosinophils % (Auto) 1.9 % (0.0-4.3); Hematocrit 38.2 % (30.3-42.9); Hemoglobin 12.7 gm/dl (10.1-14.3); Lymphocytes # (Auto) 1.7 K/mm3 (1.2-5.4); Lymphocytes % (Auto) 27.9 % (13.4-35.0); Mean Corpuscular HGB Conc 33 % (30-34); Mean Corpuscular Volume 91 fl (79-97); Monocytes # (Auto) 0.5 K/mm3 (0.0-0.8); Monocytes % (Auto) 8.6 % (0.0-7.3); Platelet Count 291 K/mm3 (140-440); Red Blood Count 4.19 M/mm3 (3.65-5.03); Red Cell Distribution Width 14.4 % (13.2-15.2)
[2021-11-18 22:06] LABS: BUN/Creatinine Ratio 13; Blood Urea Nitrogen 13 mg/dL (7-17); Calcium 8.4 mg/dL (8.4-10.2); Hemolysis Index 8
--- NOTE | 2021-11-18 22:33 | Emergency Department Report ---
ED Psych HPI - General Chief Complaint: Psych Stated Complaint: SUICIDAL THOUGHTS Time Seen by Provider: 11/18/21 20:49 Source: patient Mode of arrival: Ambulatory Limitations: No Limitations - History of Present Illness Initial Comments: Chief complaint: "I am having suicidal thoughts." HPI: This is a 36-year-old transgender male chosen name [place] with history of PTSD, ADHD, bipolar disorder and schizophrenia previous suicide attempts who presents with suicidal thoughts. He has been noncompliant with medications since August. He has had racing thoughts. His suggested that he is evaluated in the emergency department. Requests a 72-hour hold. He denies any physical complaints. MD Complaint: suicidal ideation, feels depressed -: Gradual, week(s) (Several weeks) Associated Psychiatric Symptoms: depression, suicidal ideation, racing thoughts History of same: Yes Quality: constant Improves With: none Worsens With: none Context: not taking psychiatric, significant life stressor Treatments Prior to Arrival: none If Self Harm: admits thoughts of - Related Data Home Medications Medication Instructions Recorded Confirmed Last Taken Testosterone Cypionate 50 mg IM QWEEK 11/25/20 08/01/21 1 Week Ago [Depo-Testosterone] ~07/25/21 50 mg Previous Rx's Medication Instructions Recorded Last Taken Type ARIPiprazole [Abilify] 10 mg PO DAILY 30 Days #30 tab 11/19/21 Unknown Rx Sertraline [Zoloft] 50 mg PO QDAY 30 Days #30 11/19/21 Unknown Rx hydrOXYzine PAMOATE [Vistaril] 25 mg PO BID 30 Days #60 cap 11/19/21 Unknown Rx traZODone [Desyrel] 50 mg PO QHS 30 Days #30 tab 11/19/21 Unknown Rx Allergies Allergy/AdvReac Type Severity Reaction Status Date / Time No Known Allergies Allergy Verified 11/18/21 20:46 ED Review of Systems ROS: Stated complaint: SUICIDAL THOUGHTS Other details as noted in HPI Comment: All other systems reviewed and negative Constitutional: denies: chills, fever, malaise Respiratory: denies: cough, shortness of breath Cardiovascular: denies: chest pain Gastrointestinal: denies: abdominal pain, nausea, vomiting Psychiatric: depression, suicidal thoughts ED Past Medical Hx - Past Medical History Previous Medical History?: Yes Hx Psychiatric Treatment: Yes (ptsd/depression/anxiety/adhd/mood swings) Additional medical history: pt is going to gender reassignment surgery. - Surgical History Past Surgical History?: Yes Additional Surgical History: top surgery - Social History Smoking Status: Current Every Day Smoker Substance Use Type: None - Medications Home Medications: Home Medications Medication Instructions Recorded Confirmed Last Taken Type Testosterone Cypionate 50 mg IM QWEEK 11/25/20 08/01/21 1 Week Ago History [Depo-Testosterone] ~07/25/21 50 mg ARIPiprazole [Abilify] 10 mg PO DAILY 30 Days #30 tab 11/19/21 Unknown Rx Sertraline [Zoloft] 50 mg PO QDAY 30 Days #30 11/19/21 Unknown Rx hydrOXYzine PAMOATE [Vistaril] 25 mg PO BID 30 Days #60 cap 11/19/21 Unknown Rx traZODone [Desyrel] 50 mg PO QHS 30 Days #30 tab 11/19/21 Unknown Rx ED Physical Exam - General Limitations: No Limitations General appearance: alert, in no apparent distress - Head Head exam: Present: atraumatic, normocephalic - Eye Eye exam: Present: normal appearance - ENT ENT exam: Present: mucous membranes moist - Neck Neck exam: Present: normal inspection, full ROM - Respiratory Respiratory exam: Present: normal lung sounds bilaterally. Absent: respiratory distress, wheezes, rales, rhonchi, stridor - Cardiovascular Cardiovascular Exam: Present: regular rate, normal rhythm, normal heart sounds. Absent: systolic murmur, diastolic murmur, rubs, gallop - GI/Abdominal GI/Abdominal exam: Present: soft, normal bowel sounds. Absent: distended, tenderness, guarding, rebound - Extremities Exam Extremities exam: Present: normal inspection - Neurological Exam Neurological exam: Present: alert, oriented X3 - Psychiatric Psychiatric exam: Present: depressed, suicidal ideation - Skin Skin exam: Present: warm, dry, intact, normal color. Absent: rash ED Course Vital Signs 11/18/21 11/19/21 11/19/21 20:44 06:01 08:32 Temperature 98.7 F Pulse Rate 69 Respiratory 18 18 Rate Blood Pressure 118/72 O2 Sat by Pulse 99 97 97 Oximetry ED Medical Decision Making - Lab Data Result diagrams: 11/18/21 21:11 11/18/21 21:11 Laboratory Results - last 24 hr 11/18/21 11/18/2122 21:11 21:11 21:11 WBC RBC Hgb Hct MCV MCH MCHC RDW Plt Count Lymph % (Auto) [place] % (Auto) Eos % (Auto) Baso % (Auto) Lymph # (Auto) [place] # (Auto) Eos # (Auto) Baso # (Auto) Seg Neutrophils % Seg Neutrophils # Sodium 140 Potassium 4.2 Chloride 106.5 Carbon Dioxide 22 Anion Gap 16 BUN 13 Creatinine 1.0 Estimated GFR > 60 BUN/Creatinine Ratio 13 Glucose 89 Calcium 8.4 Salicylates 0.7 L Acetaminophen 5.0 L Plasma/Serum Alcohol 11/18/21 11/18/21 21:11 21:11 WBC 6.2 RBC 4.19 Hgb 12.7 Hct 38.2 MCV 91 MCH 30 MCHC 33 RDW 14.4 Plt Count 291 Lymph % (Auto) 27.9 [place] % (Auto) 8.6 H Eos % (Auto) 1.9 Baso % (Auto) 0.5 Lymph # (Auto) 1.7 [place] # (Auto) 0.5 Eos # (Auto) 0.1 Baso # (Auto) 0.0 Seg Neutrophils % 61.1 Seg Neutrophils # 3.8 Sodium Potassium Chloride Carbon Dioxide Anion Gap BUN Creatinine Estimated GFR BUN/Creatinine Ratio Glucose Calcium Salicylates Acetaminophen Plasma/Serum Alcohol < 0.01 - Medical Decision Making Mr. Mushtaq Eason is a 36-year-old transgender male with history of ADHD, bipolar disorder, schizophrenia who presents with suicidal ideation, racing thoughts and depressed mood. With history of previous numerous suicide attempts, patient is at high risk for self-harm. I am unable to ensure contract for his safety. He is medically clear for psychiatric care. 1013 form completed. ED hold protocol in place. Awaiting treatment recommendations by psychiatric team. CBC chemistry serum toxicology unremarkable Critical care attestation.: If time is entered above; I have spent that time in minutes in the direct care of this critically ill patient, excluding procedure time. ED Disposition Clinical Impression: Suicidal ideation, Acute depression, Bipolar disorder, Schizophrenia Disposition: HOME / SELF CARE / HOMELESS Is pt being admited?: No Does the pt Need Aspirin: No Condition: Stable Instructions: Managing Bipolar Disorder, Suicidal Feelings: How to Help Yourself, Managing Schizophrenia Additional Instructions: OUTPATIENT MENTAL HEALTH RESOURCES [facility] Nessa Fishman MD: [address] [place] [address] [place] [address] [place] [facility]: [employer] [employer] [address] [place] [address] [place] [address] [phone] [facility]: [facility] Healthcare: [address] [facility] [place] [address] [facility] [address] [facility]: Hector Avila MD: [address] [facility] [address] [facility] [address] [facility] [address] [facility]: [address] [place] [address] [phone] [place] CRISIS AND ACCESS LINE: Prescriptions: traZODone [Desyrel] 50 mg PO QHS 30 Days #30 tab ARIPiprazole [Abilify] 10 mg PO DAILY 30 Days #30 tab hydrOXYzine PAMOATE [Vistaril] 25 mg PO BID 30 Days #60 cap Sertraline [Zoloft] 50 mg PO QDAY 30 Days #30 Referrals: PRIMARY CAREMD [Primary Care Provider] - 3-5 Days
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
--- NOTE | 2021-11-19 12:25 | Emergency Department Report ---
Blank Doc - Documentation Documentation: Chart reviewed. Patient has been cleared by mental health for discharge and has rescinded 1013. Patient be discharged with meds and follow-up as per mental health
== END 2021-11-19 13:37 | disposition home or self-care (01) ==
LOC: EEVIPCON 20:40 → ED 20:40
DX: R45.851 Suicidal ideations (principal); F32.A Depression, unspecified; F32.9 Major depressive disorder, single episode, unspecified; F20.9 Schizophrenia, unspecified; F17.200 Nicotine dependence, unspecified, uncomplicated; Z79.899 Other long term (current) drug therapy; Z98.890 Other specified postprocedural states; Z20.822 Contact with and (suspected) exposure to COVID-19
CPT/HCPCS: 36415; 80048; 85025; 99284; U0003; 80320; 99283; G0480

== ENCOUNTER 2021-11-28 19:14 | Emergency (ER) | payer MEDICAID ==
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
[2021-11-28] MEDS ORDERED: IBUPROFEN 800 MG TAB PO ONE (23:51)
[2021-11-29 00:32] VITALS: BP 125/83
--- NOTE | 2021-12-02 10:08 | XRay Report ---
CHEST 2 VIEWS INDICATION / CLINICAL INFORMATION: cough. COMPARISON: None available. FINDINGS: SUPPORT DEVICES: None. HEART / MEDIASTINUM: No significant abnormality. LUNGS / PLEURA: No significant pulmonary or pleural abnormality. No pneumothorax. ADDITIONAL FINDINGS: No significant additional findings. IMPRESSION: 1. No acute findings. Signer Name: Otto Villa II, MD Signed: 11/28/2021 10:14 PM Workstation Name: [id number]
--- NOTE | 2021-12-02 10:10 | XRay Report ---
XR hand 3+V LT INDICATION / CLINICAL INFORMATION: left hand swelling COMPARISON: None available. AP lateral and oblique views left hand: FINDINGS: No significant abnormality demonstrated. No acute findings. IMPRESSION: 1. No acute pathology. Signer Name: Otto Villa II, MD Signed: 11/28/2021 10:13 PM Workstation Name: [id number]
== END 2021-11-29 00:35 | disposition home or self-care (01) ==
LOC: ED 19:14
DX: J20.9 Acute bronchitis, unspecified (principal); S60.222A Contusion of left hand, initial encounter; F17.200 Nicotine dependence, unspecified, uncomplicated; X58.XXXA Exposure to other specified factors, initial encounter; Y93.89 Activity, other specified; Y92.89 Other specified places as the place of occurrence of the external cause; Y99.8 Other external cause status
CPT/HCPCS: 71046; 99283